=== PATIENT | male | born 2000 | race Two or more races ===

== ENCOUNTER 2021-02-11 11:29 | Emergency (ER) | payer SELFPAY ==
[~2021-02-11] VITALS: Ht 170.2 cm; Wt 81.6 kg
[2021-02-11 11:45] VITALS: BP 114/74
--- NOTE | 2021-02-11 11:50 | NUR ---
DR. MESA AT BEDSIDE FOR EVAL.
[2021-02-11] MEDS ORDERED: ONDA4TAB5 PO (11:56)
[2021-02-11] MEDS ORDERED: LORA-259 PO (11:56)
--- NOTE | 2021-02-11 12:37 | NUR ---
Patient discharged to home in stable condition. Written and verbal after care instructions given. Patient verbalizes understanding of instruction. Discharged instruction given to Mom, and translated in hebrew.
== END 2021-02-11 12:30 | disposition home or self-care (01) ==
LOC: ER 11:33
DX: F41.9 Anxiety disorder, unspecified (principal); R10.9 Unspecified abdominal pain; Z60.2 Problems related to living alone; Z79.899 Other long term (current) drug therapy